=== PATIENT | female | born 1975 | race Caucasian/White ===

== ENCOUNTER → 2023-08-29 10:35 | Outpatient (REF) | payer BC, SELFPAY | LOC: HWRAD 10:35 | PROVIDERS: ATTENDING PHYSICIAN Family Medicine; FAMILY PHYSICIAN Family Medicine | DX: M79.672 Pain in left foot (principal) | CPT/HCPCS: 73630 ==

== ENCOUNTER → 2024-01-04 11:17 | Outpatient (REF) | payer BC, SELFPAY | LOC: RAD 11:17 | PROVIDERS: ATTENDING PHYSICIAN Student in an Organized Health Care Education/Training Program; FAMILY PHYSICIAN Family Medicine | DX: N93.9 Abnormal uterine and vaginal bleeding, unspecified (principal); R14.0 Abdominal distension (gaseous); R11.0 Nausea | CPT/HCPCS: 76830; 76856 ==

== ENCOUNTER 2024-02-15 12:56 | Emergency (ER) | payer BC, SELFPAY ==
[2024-02-15 12:58] VITALS: BP 154/100
--- NOTE | 2024-02-15 13:19 | ED.GENMED ---
History of Present Illness
General
Chief Complaint: Psychiatric Problem
Source: patient and spouse
Exam Limitations: none
Time Seen by Provider: 02/15/24 13:05
Nursing documentation reviewed up to this point in time: agreed with
History of Present Illness
History of Present Illness:
48-year-old female with a past medical history of anxiety and depression who presents to the emergency room with her for evaluation of tearfulness and behavioral changes. Patient's says that last week (/Tuesday) he noticed
that she was confused�he says that patient was complaining of brain fog and was casually confusing the day of the week and the time of the day. He says that he checked her medication box and noticed that she had missed a few doses of her
psychiatric medications. She started taking them again on Tuesday and he says that fogginess/confusion improved. Today however patient did not show up for work (she virtually from home)�he received a call that she had not logged on for work.
When he went to check on her she was extremely tearful and was once again not behaving normally and so he brought her to the emergency to be assessed. He does report that there have been some recent stresses in the family including recent diagnosis
of her mother with cancer and her father with Parkinson's disease. The patient is extremely tearful and is sobbing when I entered the room and try to speak with her. When asked her what is wrong she says that something is wrong with her head.
Initially denied headache but then said that she had some mild headache on repeated questioning. She is very withdrawn and not answering any other questions.
Past History
Past History
ED Past Medical History: None
Social History
Tobacco: Non-smoker
Living: with family
Review of Systems
Review of Systems
Unable to obtain full review of systems at this time due to: other (Patient not answering)
All Other Systems: Not applicable
Phy Exam
Physical Exam
Physical Exam:
General: Awake, alert, lying prone on the bed sobbing
Head: Normocephalic, atraumatic
Eyes: Conjunctiva normal, EOMI, pupils equal round and reactive to light bilaterally
Throat: Airway intact, handling secretions
Neck: Trachea midline, supple without meningismus
Lungs: Clear to auscultation bilaterally, no wheezing, rales, rhonchi
Heart: Tachycardia with regular rhythm, no murmurs, gallops, or rubs
Abd: Soft, non distended, nontender
Neuro: Cranial nerves grossly intact, speech fluid, no gross motor or sensory deficits
Extremities: No edema in extremities, warm and well-perfused
Psych: Tearful affect
Scores
Heart Failure Risk
Heart Failure Risk Score: Not Applicable
Heart Score for Chest Pain Patients
STEMI patient?: Not applicable
Withdrawal Assessment of Alcohol
Withdrawal Assessment Completed?: Not applicable
Course
Orders/Labs/Results
Orders:
Orders
02/15/24 13:03
1:1 Observation - Suicide/ Violent Behavior As Directed
Crisis Consult Urgent
Reason for Consult: SI
02/15/24 13:19
CT Head W/o Iv Contrast Urgent
Comment:
Reason For Exam: new onset confusion
Drug Screen, Urine [Urine Drug Abuse Screen] Urgent
Urinalysis Reflex To Culture Urgent
Test Result ONCE
02/15/24 14:02
Acetaminophen Urgent
Alcohol Urgent
Complete Blood Count/With Diff Urgent
Comprehensive Metabolic Panel Urgent
HCG, Serum Qualitative Screen Urgent
Lipase Urgent
Salicylate Urgent
TSH Reflex To Free T4 Urgent
Abnormal Lab Results
02/15/24
14:02
WBC 4.5 L 10^3/uL
(4.8-10.8)
Carbon Dioxide 21 L mmol/L
(22-30)
BUN 6 L mg/dl
(7-17)
Creatinine 0.5 L mg/dL
(0.6-1.0)
AST 58 H U/L
(14-36)
ALT 49 H U/L
(0-35)
Salicylates < 1.0 L mg/dl
(2.0-20.0)
Acetaminophen < 10 L ug/ml
(10-30)
02/15/24 14:02
02/15/24 14:02
Vital Signs
Initial and Last Documented VS:
Initial Vital Signs
Temp Pulse Resp BP Pulse Ox
36.8 C 104 18 154/100 93
02/15/24 12:58 02/15/24 12:58 02/15/24 12:58 02/15/24 12:58 02/15/24 12:58
Last Documented Vital Signs
Temp Pulse Resp BP Pulse Ox
36.8 C 104 18 154/100 93
02/15/24 12:58 02/15/24 12:58 02/15/24 12:58 02/15/24 12:58 02/15/24 12:58
MDM/Problems Addressed
Differential Diagnosis Includes:
Drug/alcohol use or intoxication, acute depressive episode, brain mass/bleed
MDM/Problems Addressed:
48-year-old female presents for evaluation of odd behavior, mild confusion and tearfulness developing over the past few days in the setting of recent familial stress. Hypertensive and tachycardic otherwise normal vitals. Physical exam as above.
Place an IV check labs including a CBC and a CMP, alcohol and drug screen. Will check hCG. Check CT head. Monitor closely and reassess.
Labs reviewed: CBC and CMP significant for marginal LFT abnormality with AST greater than ALT; her alcohol today is 325, suspect that alcohol use likely counseled her recent behavioral emotional issues as well as her marginally abnormal LFTs.
Tylenol salicylate levels are normal. CT head was negative. I spoke with patient and at bedside and went over results; patient and to discuss her recent alcohol use and that we will reassess how we can assist. Crisis did evaluate:
did not feel that she is a candidate for inpatient psychiatric treatment.
I long discussion with patient and after they had some time to talk. Patient admits that she has been using alcohol to cope with increased anxiety lately. She has been noncompliant with her long-term anxiety meds (fluoxetine 40 mg daily
and Wellbutrin 150 mg daily). She also has a distant history of eating disorder and she feels that she may be having some issues around food lately which is making her more anxious. She denies having any suicidal thoughts or hallucinations,
homicidal ideations. I did offer her inpatient psychiatric treatment but she does not feel that this is necessary nor does . They called to schedule outpatient psychiatric follow-up after speaking with our crisis team and they have an
appointment scheduled. In the meantime she intends to restart her psychiatric meds�I did discuss with psychiatry if she says she has been noncompliant at least for a week and maybe longer; she can restart Wellbutrin at 150 mg daily but they
recommended starting fluoxetine at 20 mg daily x 1 week before increasing to her normal dose�patient and understand and are comfortable with this plan. We did have a long discussion about her alcohol use�she says that it is not a long-term
problem and she has only been drinking recently. She has never had issues with withdrawal when she does not drink. She does not feel that she needs substance abuse counseling at this point. I did reiterate with both patient and that if
they have any concerns about substance use we can provide assistance and that she should return to the ER for help. I also reiterated that if she feels that her depression/anxiety is worsening, if she has any thoughts of self-harm where she feels
she needs more intense care for her symptoms that she should return and we can once again consider inpatient treatment if she should wish. At this point she is requesting discharge as his �he will keep an eye on her today, advised her to
drink plenty of fluids explained that she cannot operate motor vehicle for at least 24 hours. All questions answered.
Chronic conditions affecting care:
Anxiety/depression
*Radiology
Radiology exam reviewed: radiology read reviewed
*Pulse Oximetry
Patient hypoxic: no
*Critical Care Note
Total Time (30-74mins, 75-104mins- exclusive of procedures): Not Applicable
Data Reviewed
Source: patient and spouse
Patient Management
Discussion with other providers: [employer] Professor (Discussed with psychiatry) and Other (Discussed with crisis staff)
ED Attending Note
-
Portions of this chart may have been created with voice recognition software.� Occasional wrong word or��sound alike� substitutions may have occurred due to the inherent limitations of voice recognition software.
Discharge Plan
Departure
Patient Disposition: Home (Routine Discharge)
Date of Disposition: 02/15/24
Time of Disposition: 17:11
Patient with high blood pressure during this ER visit?: Yes
Discharge Problem:
Alcohol intoxication, Anxiety and depression
Instructions: Depression, Adult (DC), Generalized Anxiety Disorder (DC), Alcohol Intoxication ED
Prescriptions:
No Action
Vitamins 1 TAB tablet
PO HS
Referrals:
Salomón Smith MD [Family Provider] -
Activity Restrictions/Additional Instructions:
You should restart your normal psychiatric medications. You can continue taking your Wellbutrin at a dose of 150 mg as we discussed but you should cut your dose of fluoxetine in half (take 20 mg) for the next week before increasing back to your
normal 40 mg dose. If you have any thoughts of hurting yourself, if you feel your psychiatric symptoms are worsening please return immediately to the emergency room. You must stop drinking alcohol--it will make your psychiatric issues worse and
poses serious health risks. If you feel you need any help with alcohol use or substance abuse counseling please return to the emergency room. You should follow-up with the psychiatrist as scheduled.
Thank you for visiting the Emergency Department at [facility].
1. Please schedule a follow up appointment as directed. Call first thing tomorrow morning to make an appointment.
2. If indicated, please take your medications as instructed and indicated on discharge paperwork.
3. If any of your symptoms do not improve, or persist, or become more severe within 6-12 hours, please return to the emergency department for further care.
4. Please return to the emergency department if you develop a headache, neck pain/stiffness, fever greater than 100.4F, chest pain, shortness of breath, persistent nausea, vomiting, slurred speech, difficulty walking, numbness/tingling, weakness,
signs of infection or any other symptoms that are worrisome to you.
Please call [phone] if you have any questions.
Interventions
Interventions:
*Risk Screen - Suicide Last Done: 02/15/24 12:58
*General Assessment Last Done: 02/15/24 12:58
*Neglect/Abuse Screening Last Done: 02/15/24 12:58
ED- Fall Risk Assessment Last Done: 02/15/24 14:09
*ED COVID-19 Vaccine History Last Done: 02/15/24 14:09
ED-Psychological Assessment Last Done: 02/15/24 14:09
Discharge Date and Time
Print Language: NAMIBIAN
[2024-02-15 14:10] LABS: % Basophils 0.9 % (0-2); % Eosinophils 0.2 % (0-6); % Immature Granulocytes 0.2 % (0-0.5); % Lymphocytes 25.6 % (20.5-51.1); % Neutrophils 64.1 % (42.2-75.2); Absolute Lymphocytes 1.2 10^3/uL (1.2-3.4); Absolute Monocytes 0.4 10^3/uL (0.1-0.6); Absolute Neutrophils 2.9 10^3/uL (1.4-6.5); Hematocrit 42.2 % (37.0-47.0); Hemoglobin 14.4 g/dL (12.0-16.0); Mean Corp Hgb Conc. 34.1 g/dL (33.0-37.0); Mean Corpuscular Hgb 29.9 pg (27.0-31.0); Mean Corpuscular Volume 87.7 fL (81.0-99.0); Mean Platelet Volume 9.9 fL (7.4-10.4); Nucleated Red Blood Cells % 0 %; Platelet Count 251 10^3/uL (130-400); Red Blood Cell Count 4.81 10^6/uL (4.20-5.40); Red Cell Dist. Width 14.1 % (11.5-14.5); White Blood Cell Count 4.5 10^3/uL (4.8-10.8)
[2024-02-15 14:37] LABS: HCG, Serum Qualitative Screen Negative
[2024-02-15 14:48] LABS: ALT (SGPT) 49 U/L (0-35); AST (SGOT) 58 U/L (14-36); Acetaminophen < 10 ug/ml (10-30); Albumin 4.7 g/dl (3.5-5.0); Alkaline Phosphatase 81 U/L (38-126); Blood Urea Nitrogen 6 mg/dl (7-17); Calcium 9.3 mg/dl (8.4-10.2); Carbon Dioxide 21 mmol/L (22-30); Chloride 105 mmol/L (98-107); Glucose 98 mg/dl (70-99); Lipase 190 U/L (23-300); Potassium 4.6 mmol/L (3.5-5.1); Salicylate < 1.0 mg/dl (2.0-20.0); Sodium 145 mmol/L (135-145); Total Bilirubin 0.3 mg/dl (0.2-1.3); Total Protein 7.6 g/dl (6.3-8.2); eGFR > 60.00
[2024-02-15 15:15] LABS: Alcohol 325 mg/dl
[2024-02-15 17:16] VITALS: BP 137/88
== END 2024-02-15 17:17 | disposition home or self-care (01) ==
LOC: EMR 12:56
PROVIDERS: EMERGENCY PHYSICIAN Emergency Medicine; FAMILY PHYSICIAN Family Medicine
DX: F10.129 Alcohol abuse with intoxication, unspecified (principal); F32.A Depression, unspecified; F41.9 Anxiety disorder, unspecified; Y90.8 Blood alcohol level of 240 mg/100 ml or more
CPT/HCPCS: 99284; 70450; 80053; 80143; 80179; 82077; 83690; 84443; 84703; 85025

== ENCOUNTER 2024-09-16 16:52 | Emergency (ER) | payer BC, SELFPAY ==
[2024-09-16 16:54] VITALS: BP 110/80
--- NOTE | 2024-09-16 17:42 | ED.GENMED ---
History of Present Illness
General
Chief Complaint: Fever
Time Seen by Provider: 09/16/24 17:24
History of Present Illness
History of Present Illness:
49-year-old female presents to the emergency department for evaluation of general malaise, persistent fever, headache, and coughing. Symptoms been ongoing for the past 6 days. Went to urgent care earlier today was sent to the emergency department
for pneumonia evaluation. She denies chest pain or shortness of breath. She notes she has had 2 tick bites this week however both were noted after the development of fever. She was sitting in urgent care prior to arrival and sent to the ED for
further workup.
Past History
Past History
ED Past Medical History: None
Social History
Tobacco: Non-smoker
Living: with family
Review of Systems
Review of Systems
Allergies reviewed?: Yes
All Other Systems: ROS reviewed and negative except as documented in HPI and ROS
Phy Exam
Physical Exam
Physical Exam:
GEN: Well appearing, NAD, WDWN
HEENT: Oral mucosa moist, no scleral icterus
Cardiac: Regular rate and rhythm, no murmurs
Lung: No respiratory distress, no tachypnea, faint rhonchi in the left lower lobe, otherwise clear lungs
MSK: No gross deformity or injuries
Skin: Good color, no pallor or jaundice, no rashes
Neuro: AO x3, moves all extremities freely
Psych: Calm, cooperative
Sepsis
Sepsis Screening
Sepsis Assessment: Sepsis Ruled Out
Sepsis Screen
Sepsis Screen: Sepsis Ruled Out
Date: 09/16/24
Time: 18:44
Course
Orders/Labs/Results
Orders:
Orders
09/16/24 17:37
CR Chest - 2 Views Urgent
Comment:
Reason For Exam: cough, fever
09/16/24 17:58
Acetaminophen [Tylenol] 1,000 mg PO NOW STA
09/16/24 18:22
Azithromycin [Zithromax] 500 mg PO NOW STA
Cefdinir [Omnicef] 300 mg PO NOW STA
Vital Signs
Initial and Last Documented VS:
Initial Vital Signs
Temp Pulse Resp BP Pulse Ox
102.4 F H 108 16 110/80 98
09/16/24 16:54 09/16/24 16:54 09/16/24 16:54 09/16/24 16:54 09/16/24 16:54
Last Documented Vital Signs
Temp Pulse Resp BP Pulse Ox
102.4 F H 94 18 118/56 99
09/16/24 16:54 09/16/24 18:00 09/16/24 18:00 09/16/24 18:00 09/16/24 18:00
MDM/Problems Addressed
MDM/Problems Addressed:
Chest x-ray reveals a left lower lobe pneumonia, she is well-appearing and not hypoxic with no comorbid medical conditions thus she is reasonable for outpatient management. At this time labs will not chemical cell changer plan
*Critical Care Note
Total Time (30-74mins, 75-104mins- exclusive of procedures): Not Applicable
ED Attending Note
-
Portions of this chart may have been created with voice recognition software.� Occasional wrong word or��sound alike� substitutions may have occurred due to the inherent limitations of voice recognition software.
Discharge Plan
Departure
Patient Disposition: Home (Routine Discharge)
Date of Disposition: 09/16/24
Time of Disposition: 18:25
Patient with high blood pressure during this ER visit?: No
Discharge Problem:
Left lower lobe pneumonia
Instructions: Pneumonia in adults
Prescriptions:
New
azithromycin [Zithromax] 250 mg tablet
250 mg PO DAILY 4 Days Qty: 4 0RF
cefdinir 300 mg capsule
300 mg PO BID Qty: 9 0RF
No Action
Vitamins 1 TAB tablet
PO HS
Referrals:
Salomón Smith MD [Family Provider, Family Practice]
Interventions
Interventions:
*Risk Screen - Suicide Last Done: 09/16/24 16:54
*General Assessment Last Done: 09/16/24 18:13
*Neglect/Abuse Screening Last Done: 09/16/24 16:54
*ED- Fall Risk Assessment Last Done: 09/16/24 18:13
*ED COVID-19 Vaccine History Last Done: 09/16/24 18:13
ED- Neurological Assessment Last Done: 09/16/24 18:15
ED-Skin Assessment Last Done: 09/16/24 18:15
Discharge Date and Time
Print Language: [id number]
[2024-09-16 18:00] VITALS: BP 118/56
[2024-09-16] MEDS: TYLENOL 1000 MG PO (18:11)
[2024-09-16 18:12] VITALS: BMI 23.9
[2024-09-16] MEDS: OMNICEF 300 MG PO (18:43)
[2024-09-16] MEDS: ZITHROMAX 500 MG PO (18:44)
== END 2024-09-16 18:49 | disposition home or self-care (01) ==
LOC: EMR 16:52
PROVIDERS: EMERGENCY PHYSICIAN Emergency Medicine; FAMILY PHYSICIAN Family Medicine
DX: J18.9 Pneumonia, unspecified organism (principal)
CPT/HCPCS: 99283; 71046